=== PATIENT | male | born 1990 | race Caucasian/White ===

== ENCOUNTER 2019-10-11 19:21 | Emergency (ER) | payer BC ==
[~2019-10-11] VITALS: Ht 190.5 cm; Wt 150.0 kg
[~2019-10-11 19:21] MED LIST: ACHD5005 PO; CEPH-38 PO; OXYC-12 PO; SULF1TAB38 PO
--- OUTSIDE RECORDS SUMMARY | 2019-10-11 19:28 | XMS REPORT | Clinical Summary ---
Author Author Dustin, Matheus Allan [facility] Address Unknown Phone Unavailable Allergies, Adverse Reactions, Alerts Allergy Name Reaction Description Start Date Severity Status Pr ovider No Known Allergies Kristi jacob LRT Conditions or Problems Problem Name Problem Code Onset Date Status Entry Date Provider Comment Standard Description Annotate BMI 40-44.9 Active Burke Cordova DO Body Mass Index 40.0-44.9, adult Obesity Class III (BMI >=40) Active Burke Cordova DO Morbid obesity Diabetes mellitus, family hx V18.0 Active Burke Cordova DO Family history of diabetes mellitus Wellness exam V70.0 Active Burke Cordova DO Routine general medical examination at a health care facility Medication List Medication Instructions Start Date Stop Date Generic Name NDC Status Provider Patient Instruction No Drug Therapy Prescribed - none known did ask Kristi Soria LRT Vital Signs Date Name Value Unit Range Description blood pressure, diastolic, repeated by physician 86 BP gillespie blood pressure, diastolic 86 mm[Hg] BP gillespie blood pressure, systolic, repeated by physician 133 BP sys blood pressure, systolic 133 mm[Hg] BP sys height E&M 74 [in_us] Bdy height pulse rate E&M 80 /min Heart rate temperature E&M 98.7 [degF] Body temp erature weight E&M 328 [lb_av] Weight Measure d Diagnostic Results Date Name Value Unit Range Description Lab Report: CBC, Comp. Metabolic Panel, Lipid Panel - Chemistry sodium, serum 139 mmol/L 033-621 1618/04/09 carbon dioxide, venous blood 29.4 mmol/L 21.0-32 .0 potassium, serum 4.5 mmol/L 3.5-5.2 chloride, serum 102 mmol/L 98-107 blood glucose 103 mg/dL 65-95 urea nitrogen, blood 17 mg/dL 7-18 creatinine, serum 0.80 mg/dL 0.60-1.30 Estimated Glomerular Filtration Rate (calc) 122 (?) mL/min/1.73m2 = OR > 60 mL/min alanine aminotransferase (SGPT), serum 40 U/L 12-78 aspartate aminotransferase (SGOT), serum 27 U/L 19-43 calcium, serum 9.0 mg/dL 8.5-10.1 bilirubin, serum, total 0.60 mg/dL 0.00-1.00 cholesterol, serum 114 mg/dL 871-633 5935/04/09 triglyceride, serum, fasting 78 mg/dL 30-200 HDL cholesterol, serum 32 mg/dL 32-60 LDL cholesterol, serum 66 mg/dL 0-130 Lab Report: CBC, Comp. Metabolic Panel, Lipid Panel - Hematology leukocyte count, blood 6.8 10^3/MM^3 10*3/mm3 4.6-10.2 erythrocyte (RBC) count 5.52 10^6/MM^3 10*6/mm3 4.50-6.5 0 hemoglobin, blood 15.8 g/dL 14.0-18.0 hematocrit, blood 47.4 % 40.0-54.0 mean corpuscular volume, RBC 86 fL 80-97 mean corpuscular hemoglobin, RBC 28.6 pg 27. 0-31.2 mean corpuscular hemoglobin concentration, RBC 33.3 G/DL % 31.8-35.4 red blood cell distribution width 11.8 % 13 .0-18.0 platelet count 230 10^3/MM^3 10*3/mm3 142-424 Lab Report: CBC, Comp. Metabolic Panel, Lipid Panel - Lab Alkaline phosphatase 76 50-136 Office Visit: Establishing Care - Chemis try HDL cholesterol, serum, target level 40 mg/dL cholesterol, target level 200 mg/dL triglyceride, target level 150 mg/dL Encounters Code Encounter Date Provider Facility CPT-85029 40931-Aim Vst-New Level III 13:51:14 CDT Greg mena W [facility] Procedures Code Procedure Name Date Entry Date Standard Desc ription CPT-14685 Venipuncture Draw Fee 11:16:08 CDT
--- OUTSIDE RECORDS SUMMARY | 2019-10-11 19:28 | XMS REPORT | Clinical Summary ---
Author Author Admin, Matheus Allan [facility] Address Unknown Phone Unavailable Allergies, Adverse [...] Panel - Chemistry sodium, serum 139 mmol/L 227-732 4642/04/09 carbon dioxide, venous blood 29.4 mmol/L 21.0-32 [...] 0.60 mg/dL 0.00-1.00 cholesterol, serum 114 mg/dL 780-957 5574/04/09 triglyceride, serum, fasting 78 mg/dL 30-200 HDL [...] mg/dL Encounters Code Encounter Date Provider Facility CPT-47930 11127-Jsr Vst-New Level III 13:51:14 CDT Greg mena W [facility] Procedures Code Procedure Name Date Entry Date Standard Desc ription CPT-63319 Venipuncture Draw Fee 11:16:08 CDT
--- OUTSIDE RECORDS SUMMARY | 2019-10-11 19:28 | XMS REPORT | Clinical Summary ---
Author Author Dustin, Matheus Allan [facility] Address Unknown Phone Unavailable Allergies, Adverse [...] E&M 74 [in_us] Bdy height pulse rate 80 /min Heart rate temperature E&M 98.7 [degF] Body temp erature weight E&M 328 [lb_av] Weight Measure d Diagnostic Results Date Name Value Unit Range Description Lab Report: CBC, Comp. Metabolic Panel, Lipid Panel - Chemistry sodium, serum 139 mmol/L 658-671 5833/04/09 carbon dioxide, venous blood 29.4 mmol/L 21.0-32 [...] 0.60 mg/dL 0.00-1.00 cholesterol, serum 114 mg/dL 505-439 1736/04/09 triglyceride, serum, fasting 78 mg/dL 30-200 HDL [...] mg/dL Encounters Code Encounter Date Provider Facility CPT-77580 96619-Jdj Vst-New Level III 13:51:14 CDT Greg mena W [facility] Procedures Code Procedure Name Date Entry Date Standard Desc ription CPT-73112 Venipuncture Draw Fee 11:16:08 CDT
--- OUTSIDE RECORDS SUMMARY | 2019-10-11 19:29 | XMS REPORT | Clinical Summary ---
Author Author Dustin, Matheus Allan [facility] Address Unknown Phone Unavailable Allergies, Adverse [...] Results Date Name Value Unit Range Description Office Visit: Establishing Care - Chemis try HDL cholesterol, serum, target level 40 mg/dL cholesterol, target level 200 mg/dL triglyceride, target level 150 mg/dL Encounters Code Encounter Date Provider Facility CPT-34479 16592-Yog Vst-New Level III 13:51:14 CDT Greg Rowley [facility]
--- OUTSIDE RECORDS SUMMARY | 2019-10-11 19:29 | XMS REPORT | Clinical Summary ---
Author Author Admin, Matheus Allan [facility] Address Unknown Phone Unavailable Allergies, Adverse [...] mg/dL Encounters Code Encounter Date Provider Facility CPT-30983 01462-Xqo Vst-New Level III 13:51:14 CDT Greg Rowley [facility]
--- OUTSIDE RECORDS SUMMARY | 2019-10-11 19:29 | XMS REPORT | Clinical Summary ---
Author Author Dustin, Matheus Allan [facility] Address Unknown Phone Unavailable Allergies, Adverse Reactions, [...] mg/dL Encounters Code Encounter Date Provider Facility CPT-46272 00387-Ctm Vst-New Level III 13:51:[address] [facility] Procedures Code Procedure Name Date Entry Date Standard Desc ription CPT-23422 Venipuncture Draw Fee 11:16:08 CDT
--- OUTSIDE RECORDS SUMMARY | 2019-10-11 19:29 | XMS REPORT | Clinical Summary ---
Author Author Dustin, Matheus Allan [facility] Address Unknown Phone Unavailable Allergies, Adverse [...] Panel - Chemistry sodium, serum 139 mmol/L 098-255 6948/04/09 carbon dioxide, venous blood 29.4 mmol/L 21.0-32 [...] 0.60 mg/dL 0.00-1.00 cholesterol, serum 114 mg/dL 552-939 1143/04/09 triglyceride, serum, fasting 78 mg/dL 30-200 HDL [...] mg/dL Encounters Code Encounter Date Provider Facility CPT-29671 04644-Gld Vst-New Level III 13:51:14 CDT Greg mena W [facility] Procedures Code Procedure Name Date Entry Date Standard Desc ription CPT-16264 Venipuncture Draw Fee 11:16:08 CDT
--- OUTSIDE RECORDS SUMMARY | 2019-10-11 19:29 | XMS REPORT | Clinical Summary ---
Author Author Admin, Matheus Allan [facility] Address Unknown Phone Unavailable Allergies, Adverse [...] Panel - Chemistry sodium, serum 139 mmol/L 014-873 8073/04/09 carbon dioxide, venous blood 29.4 mmol/L 21.0-32 [...] 0.60 mg/dL 0.00-1.00 cholesterol, serum 114 mg/dL 172-913 6375/04/09 triglyceride, serum, fasting 78 mg/dL 30-200 HDL [...] mg/dL Encounters Code Encounter Date Provider Facility CPT-16860 43781-Ipu Vst-New Level III 13:51:14 CDT Greg mena W [facility] Procedures Code Procedure Name Date Entry Date Standard Desc ription CPT-88049 Venipuncture Draw Fee 11:16:08 CDT
--- OUTSIDE RECORDS SUMMARY | 2019-10-11 19:29 | XMS REPORT | Clinical Summary ---
Author Author Dustin, Matheus Allan [facility] Address Unknown Phone Unavailable Allergies, Adverse Reactions, [...] mg/dL Encounters Code Encounter Date Provider Facility CPT-99394 86896-Iol Vst-New Level III 13:51:14 CDT Greg Rowley [facility] Procedures Code Procedure Name Date Entry Date Standard Desc ription CPT-54518 Venipuncture Draw Fee 11:16:08 CDT
--- OUTSIDE RECORDS SUMMARY | 2019-10-11 19:29 | XMS REPORT | Clinical Summary ---
Author Author Admin, Matheus Allan [facility] Address Unknown Phone Unavailable Allergies, Adverse Reactions, [...] mg/dL Encounters Code Encounter Date Provider Facility CPT-94082 35242-Owl Vst-New Level III 13:51:14 CDT Greg Rowley [facility]
--- OUTSIDE RECORDS SUMMARY | 2019-10-11 19:29 | XMS REPORT | Clinical Summary ---
Author Author Admin, Matheus Allan [facility] Address Unknown Phone Unavailable Allergies, Adverse Reactions, [...] Panel - Chemistry sodium, serum 139 mmol/L 194-101 6175/04/09 carbon dioxide, venous blood 29.4 mmol/L 21.0-32 [...] 0.60 mg/dL 0.00-1.00 cholesterol, serum 114 mg/dL 321-553 2972/04/09 triglyceride, serum, fasting 78 mg/dL 30-200 HDL [...] mg/dL Encounters Code Encounter Date Provider Facility CPT-35754 39992-Svb Vst-New Level III 13:51:14 CDT Greg mena W [facility] Procedures Code Procedure Name Date Entry Date Standard Desc ription CPT-11432 Venipuncture Draw Fee 11:16:08 CDT
--- OUTSIDE RECORDS SUMMARY | 2019-10-11 19:29 | XMS REPORT | Continuity of Care Document ---
Author Organization Unknown Address Unknown Phone Unavailable Allergies Active Description Code Type Severity Reaction Onset Reported/Identified Relationship to Patient Clinical Status Yes No Known Allergies No Known Allergies Drug Allergy Unknown N/A 04/10/2014 Medications There is no data. Problems Date Dx Coded Attending Type Code Diagnosis Diagnosed By 03/25/2012 Other V70.5 H [facility] EXAM- GROUP SURVEY 07/29/2019 Burke Cordova DO E66.01 Obesity Class III (BMI >=40) 07/29/2019 Burke Cordova DO Z00.00 Wellness exam 07/29/2019 Burke Cordova DO Z68.41 BMI 40-44.9 07/29/2019 Burke Cordova DO Z83.3 Diabetes mellitus, family hx Procedures There is no data. Results Radiology Report from [facility] on 014 23:49:00 DIAGNOSTIC FILI GING REPORT [facility] - [address] [place] [address] PHONE #: [phone] FAX #: [phone] Name: TRISH OSBORN Loc: [facility] Radiology No: : 1990 Age: 24 Sex: M Status: DEP ER Unit No: [id number] Phys: Carlos Eduardo Stroud APRN Acct: [id number] Reason For Exam: pain, bruising Exam Date: 04/10/2014 Report Has Been Amended EXAMS: CPT CODE: [id number] FOOT 3+V LT [address] Addendum - 04/10/2014 SIGNED 04/10/2014 ADDENDUM: [id number] DIAG/FOOL Addendum: There is a smal l nondisplaced fracture of the shaft of the proximal phalanx of the left fourth toe. This was called to Carlos Eduardo Spencer on 04/10/2014 11:42 PM, at 2342 Reported and signed by: EDGAR GONSALES MD Transcribed: 04/10/2014 (052) [employer] Report TIME OF EXAM: 04/10/2014 9:53 PM REASON FOR EXAM: pain, bruising COMPARISON: None. Frontal, lateral, and oblique views of the left foot are submitted. There is no fracture, dislocation, bone destruction, or radiopaque foreign body. IMPRESSION: No acute osseous findings. at 2153 Reported and signed by: EDGAR GONSALES MD CC: Heber Esparza MD Technologist: NERY AGUILAR Transcribed Date/Time: 04/10/2014 (586)Steward/Stewardess Chief [employer] Vessel: [employer] Print[employer] Date/Time: 04/10/2014 (5687) BATCH NO: N/A PAGE 1 Signed Report Encounters ACCT No. Visit Date/Time Discharge Status Pt. Type Provider Facility Loc./Unit Complaint [id number] 09/26/2019 20:07:15 ACT Unknown Burke Cordova DO [id number] 04/10/2014 21:22:00 014 22:40:00 DIS Emergency Jerel JEFFERS, [facility] W.EDW [id number] 03/25/2012 15:16:00 Document Registration [id number] 10/08/2012 13:34:10 Document Registration
--- NOTE | 2019-10-11 19:48 | ED EENT ---
History of Present Illness General Chief Complaint: General Problems/Pain Stated Complaint: JAW PAIN/FEVER Nursing Triage Note: Patient states that his jaw has been hurting and that he has had a fever since yesterday. Patient states that he has had dental issues in the past. Patient states that the highest fever he has had was 102.9. Patient denies having coughing or shortness of breath. Patient last took 600mg Tylenol at 1530. Source: patient Exam Limitations: no limitations History of Present Illness Date Seen by Provider: Oct 11, 2019 Time Seen by Provider: 19:35 Initial Comments The patient is a pleasant 29-year-old male presents for evaluation of some lower dental discomfort as well as fever and some anterior neck discomfort which started yesterday. He isn't taking Tylenol which has been helping with his fever and he last took it at 1530. He is afebrile with a temperature of 99.8F upon arrival. He states that he has had similar dental pain/problems in the past. He denies cough or shortness of breath, chest pain, abdominal or back pain, swel ling underneath tongue, voice hoarseness, headache, nausea or vomiting, diarrhea, dizziness or syncope. He has no known medical problems. He denies any difficult breathing. He is alert and oriented 4, calm, and appears to be in no distress at this time. Timing/Duration: yesterday Severity: moderate Location: throat, dental Allergies and Home Medications Allergies Coded Allergies: No Known Drug Allergies (Verified , 03/25/07) Home Medications Cephalexin Monohydrate 500 Mg Capsule, 1 EACH PO TID, (Reported) Patient Home Medication List Home Medication List Reviewed: Yes Review of Systems Review of Systems Constitutional: chills, fever Eyes: No Symptoms Reported Ears: No Symptoms Reported Nose: no symptoms reported Mouth: denies clots, denies loose teeth, denies swelling, denies bloody discharge, denies clear discharge, denies purulent discharge, denies serosanguinous discharge, denies previous injury; other (lower anterior dental pain) Throat: pain (mild); denies swelling, denies discharge, denies neck stiffness, denies hoarse, denies aphonia, denies muffled, denies painful swallowing, denies difficulty with fluids, denies previous injury Respiratory: no symptoms reported Cardiovascular: no symptoms reported Gastrointestinal: no symptoms reported Musculoskeletal: no symptoms reported Skin: no symptoms reported Neurological: No Symptoms Reported Hematologic/Lymphatic: No Symptoms Reported Immunological/Allergic: no symptoms reported All Other Systems Reviewed Negative Unless Noted: Yes Past Pbprvji-Qfgmyn-Kifbjs Hx Past Med/Social Hx: Reviewed Nursing Past Med/Soc Hx Patient Social History Alcohol Use: Denies Use Recreational Drug Use: No Smoking Status: Never a Smoker Recent Foreign Travel: No Contact w/Someone Who Travel: No Recent Infectious Disease Expo: No Recent Hopitalizations: No Physical Abuse: No Sexual Abuse: No Mistreated: No Fear: No Past Medical History Surgeries: Yes (broke arm 2008, Hernia ) Appendectomy Respiratory: No Cardiac: No Neurological: No Reproductive Disorders: No Genitourinary: No Gastrointestinal: No Musculoskeletal: No Endocrine: No HEENT: No Cancer: No Psychosocial: No Blood Disorders: No Physical Exam Vital Signs Vital Signs - First Documented 10/11/19 19:35 Temp 37.7 Pulse 108 Resp 20 B/P (MAP) 159/85 (109) Pulse Ox 98 O2 Delivery Room Air Height, Weight, BMI Height: '" Weight: lbs. oz. kg; 41.00 BMI Method:Stated General Appearance: WD/WN, no apparent distress Eyes: bilateral eye normal inspection, bilateral eye PERRL, bilateral eye EOMI Nose: normal inspection Mouth/Throat: normal mouth inspection, pharynx normal; No excessive drooling, No mandibular swelling, No maxillary swelling, No pharynx swelling, No pharynx tenderness, No tongue swollen, No tonsillar exudate, No tonsillar swelling, No trismus, No uvula swelling, No voice changes; other (no floor of mouth swelling or abnormality, tongue is unremarkable, there is some gingivitis to the lower anterior teeth with some mild gingival swelling but no obvious dental caries or abscesses) Neck: full range of motion, supple; No carotid bruit, No limited range of motion; lymphadenopathy (R), lymphadenopathy (L); No thyromegaly; other (large submandibular bilateral lymphadenopathy) Cardiovascular: no edema, no JVD, tachycardia Respiratory: chest non-tender, lungs clear, normal breath sounds, no respira tory distress, no accessory muscle use Gastrointestinal: normal bowel sounds, non tender, soft Neurologic/Psychiatric: no motor/sensory deficits, alert, normal mood/affect, oriented x 3 Skin: normal color, warm/dry Progress/Results/Core Measures Results/Orders Lab Results Laboratory Tests Test 10/11/19 19:48 Range/Units Monoscreen NEGATIVE NEGATIVE Group A Streptococcus Screen NEGATIVE NEGATIVE My Orders Orders - FRANKLIN JOSUE DO Rapid Strep A Screen (10/11/19 19:42) Monotest (10/11/19 19:42) Vital Signs/I&O 10/11/19 19:35 Temp 37.7 Pulse 108 Resp 20 B/P (MAP) 159/85 (109) Pulse Ox 98 O2 Delivery Room Air Blood Pressure Mean: 109 Progress Progress Note : Progress Note @1951 - No evidence to suggest the patient has Tariq's angina based on the physical exam at this time. The patient's voice sounds normal, he is not having any dysphagia or drooling, he is not having any stridor or trismus, there is no tongue elevation or edema to the floor of the mouth. He has full range of motion. He appears comfortable and is in no respiratory distress. @2032 - patient updated on negative lab results. He'll be prescribed antibiotics and has been encouraged to follow up with his PCP in the next 1-2 days. The patient expresses verbal understanding and agreement with the plan and is stable for discharge. Departure Impression Primary Impression: Dental infection Additional Impression: Cervical lymphadenopathy Disposition: 01 HOME, SELF-CARE Condition: Stable Departure-Patient Inst. Decision time for Depature: 20:34 Referrals: SUSHMA HANLEY MD (PCP/Family) Primary Care Physician Patient Instructions: Dental Pain (DC), Lymphadenitis (DC) Add. Discharge Instructions: Take the prescribed medicine medication as directed. Follow-up with your doctor in the next 1-2 days. Continue to take Tylenol and/or ibuprofen at home for fever and pain relief. Return to the emergency Department immediately for new or worsening symptoms. Scripts Penicillin V Potassium (Penicillin V Potassium) 500 Mg Tablet 500 MG PO Q6H for 7 Days, #28 TAB Prov: FRANKLIN JOSUE DO 10/11/19 FRANKLIN JOSUE DO Oct 11, 2019 19:48
[2019-10-11] MEDS ORDERED: PENI500T PO (20:36)
[2019-10-11 20:41] VITALS: BP 156/88
== END 2019-10-11 20:41 | disposition home or self-care (01) ==
LOC: EDUNIT# 19:21 → ER FS 19:24
DX: K04.7 Periapical abscess without sinus (principal); R59.0 Localized enlarged lymph nodes
CPT/HCPCS: 36415; 86308; 87430

== ENCOUNTER → 2021-09-01 | Outpatient (CLI) | payer BC ==
[~2021-09-01] VITALS: Ht 188 cm; Wt 130.5 kg
[~2021-09-01] MED LIST changes: +GADOTERATE 0.5 MMOL/ML (CLARISCAN) 15 ML VIAL IV ONE; +IOHEXOL 300 MG/ML 50 ML (OMNIPAQUE 300) VIAL IV ONE; +PENI500T PO
--- NOTE | 2021-09-01 14:11 | Diagnostic Imaging Report ---
PROCEDURE: MRI right joint lower extremity with contrast. TECHNIQUE: Multiplanar, multisequence contrast-enhanced MRI of the right lower extremity was accomplished. INDICATION: Right hip pain. EXAMINATION: Right hip MRI with contrast 09/01/2021 FINDINGS: There is mild heterogeneity within the bone marrow signal along the femoral right femoral head with associated of T2 hyperintensity likely due to edema. No fracture line is appreciated. An adjacent osseous protuberance is seen at the anterior femoral head and neck junction. This can cause impingement type symptoms. However, the labrum appears intact. Minimal edema seen along the anterior superior acetabulum likely reactive. Remaining osseous structures appear unremarkable. The hamstrings tendon origins intact. Iliopsoas tendons and musculature unremarkable as visualized. The tendinous insertion at the right greater trochanter appears unremarkable. The visualized intrapelvic structures unremarkable. There are shotty lymph nodes likely within normal limits for patient along the inguinal regions bilaterally. IMPRESSION: 1. Mild hyperintensity along the right femoral head and neck which could be due to bone contusion or stress reaction. No definite fracture line seen by MRI. An osseous protuberance is noted at the anterior femoral head neck junction of the right hip which can be seen with impingement type symptoms. 2. Labrum intact. Dictated by: Dictated on workstation # [id number]
--- NOTE | 2021-09-02 08:23 | Diagnostic Imaging Report ---
INDICATION: Hip pain, undergoing MRI. The planned procedure was discussed with the patient. Informed consent obtained. Utilizing aseptic technique and following local anesthesia with 1% lidocaine, a 3-1/2" 22-gauge spinal was advanced into the right hip joint capsule at the femoral head and neck junction via an anterolateral approach. The needle coursed lateral to the palpated femoral arterial pulse. Proper positioning confirmed with intra-articular dispersal of contrast media. The joint distended with a volume of 15 mL solution of saline, iodinated contrast and gadolinium. The needle removed, hemostasis spontaneous. The patient proceeds to the MR suite for further investigation. IMPRESSION: 1. Successful fluoroscopic-guided right hip arthrography and intra-articular contrast administration with MRI pending. 2. No apparent complication. Dictated by: Dictated on workstation # [id number]
== END ==
LOC: RAD 12:00
PROVIDERS: ATTEND Orthopaedic Surgery
DX: M25.551 Pain in right hip (principal)
CPT/HCPCS: 27093; 73525; 73722

== ENCOUNTER → 2022-06-27 | Outpatient (CLI) | payer OTHER ==
[~2022-06-27] MED LIST changes: -GADOTERATE 0.5 MMOL/ML (CLARISCAN) 15 ML VIAL IV ONE; -IOHEXOL 300 MG/ML 50 ML (OMNIPAQUE 300) VIAL IV ONE
--- NOTE | 2022-06-27 16:28 | Diagnostic Imaging Report ---
INDICATION: STRAIN OF MUSCLE. COMPARISON: None. FINDINGS: Three views of the left shoulder were obtained. There is no fracture, dislocation, or other acute bony abnormality identified. The soft tissues appear unremarkable. No radiopaque foreign body is identified. The visualized portions of the left lung are clear. IMPRESSION: No acute fractures or dislocations of the left shoulder. Dictated by: Dictated on workstation # [id number]
== END ==
LOC: RAD FS 14:39
PROVIDERS: ATTEND Registered Nurse Emergency
DX: S46.812A Strain of other muscles, fascia and tendons at shoulder and upper arm level, left arm, initial encounter (principal); M25.512 Pain in left shoulder; X58.XXXA Exposure to other specified factors, initial encounter
CPT/HCPCS: 73030